=== PATIENT | male | born 1955 | race Caucasian/White ===

== ENCOUNTER 2020-04-16 20:00 | Outpatient (CLI) | payer OTHER, SELFPAY | END 2020-04-16 20:01 | disposition home or self-care (01) | LOC: SLEEP 04-17 09:51 | PROVIDERS: Family Provider Emergency Medicine Emergency Medical Services; Visit Provider Emergency Medicine Emergency Medical Services | DX: G47.09 Other insomnia (principal); G47.33 Obstructive sleep apnea (adult) (pediatric) | CPT/HCPCS: 95811 ==

== ENCOUNTER 2022-03-24 21:18 | Inpatient (IN) | payer OTHER, MEDICARE, SELFPAY ==
--- NOTE | 2022-03-24 21:27 | ECG_ITS ---
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 Measurements Intervals [place] Rate: 125 P: 63 [place]: 226 QRS: -42 QRSD: 110 T: 85 QT: 367 QTc: 530 Interpretive Statements Possible SINUS TACHYCARDIA WITH FIRST DEGREE AV BLOCK LEFT AXIS DEVIATION [QRS AXIS < -30] PATTERN CONSISTENT WITH PULMONARY DISEASE NONSPECIFIC ST & T-WAVE ABNORMALITY No previous ECG available for comparison Electronically Signed On 03-25-2022 0:07:53 CDT by Milind Ji M.D. [id number]
--- NOTE | 2022-03-24 21:27 | XRR_ITS ---
PROCEDURE INFORMATION: Exam: XR Chest Exam date and time: 03/24/2022 10:02 PM Age: 66 years old Clinical indication: Chest wall pain; Prior surgery; Surgery date: 6+ months; Surgery type: Heart; Additional info: Cp TECHNIQUE: Imaging protocol: XR of the chest. Views: 1 view. COMPARISON: No relevant prior studies available. FINDINGS: Lungs: No consolidative pulmonary infiltrates are noted. Pleural spaces: No pleural effusion. No pneumothorax. Heart/Mediastinum: No cardiomegaly. Bones/joints: Median sternotomy noted. Postop change right shoulder. Degenerative spine changes are noted. XR/XR chest 1V portable 12169 IMPRESSION: No acute abnormality demonstrated.
[2022-03-24 21:28] VITALS: BP 172/102; PULSE 92; RESP 22; TEMP 36.8; O2SAT 98; BMI 31.3
--- NOTE | 2022-03-24 22:01 | W.ED.CHESTPA ---
HPI - Chest Pain General: Chief Complaint: Chest Pain Stated Complaint: Chest Pain Time Seen by Provider: 03/24/22 21:55 Source: patient Mode of arrival: ambulatory Limitations: no limitations History of Present Illness: 66-year-old male states has been having chest pain since 9 AM. He states its been a sharp pain in the center of his chest and causing him some anxiety does have a history of PTSD along with anxiety attacks. He states it worsened got today was a 9 days been having intermittent tachycardia he states to go to lorazepam before coming up here his pain is improved to a 4 out of 10 but still having pain denies any nausea denies any fevers or cough. Has a history of an aortic valve replacement no history of coronary artery disease. Associated symptoms: Deny abdominal pain, dyspnea, fever(s), nausea or vomiting Review of Systems Const: Denies: fever(s), chills, body aches or change in appetite Eyes: Denies: blurry vision or eye discomfort ENMT: Denies: throat pain or dental pain Card: Reports: chest pain Resp: Denies: dyspnea GI: Denies: abdominal pain, nausea, vomiting or diarrhea : Denies: dysuria Musc: Denies: neck pain or back pain Skin/Breast: Denies: rash Neuro: Denies: headache(s) Psych: Reports: anxiety Bijan/Lymph: Denies: easy bruising All/Imm: Denies: urticaria Course Vital Signs: Vital signs: Vital Signs Temperature 98.2 F 03/24/22 21:28 Pulse Rate 56 L 03/24/22 23:07 Respiratory Rate 18 03/24/22 23:07 Blood Pressure 150/92 03/24/22 23:07 Pulse Oximetry 94 03/24/22 23:07 MDM - Chest Pain Medical Decision Making Patient presents here with chest pain he also had tachycardia first right now is having some bradycardia. Tachycardia could be due to his PTSD his initial troponin here is 25 due to his irregular rhythms and chest pain we will admit him for observation spoke to hospitalist who will admit. Lab Data : 03/24/22 22:00 03/24/22 22:00 Radiology Impressions Chest X-Ray 03/24/22 21:27 IMPRESSION: No acute abnormality demonstrated. Laboratory Results WBC 9.3 10^3/uL (4.0-10.0) 03/24/22 22:00 RBC 5.15 10^6/uL (4.1-5.3) 03/24/22 22:00 Hgb 15.9 g/dL (11.7-16.6) 03/24/22 22:00 Hct 46.3 % (42.0-52.0) 03/24/22 22:00 MCV 89.9 fl (80-94) 03/24/22 22:00 MCH 30.9 pg (28.0-34.0) 03/24/22 22:00 MCHC 34.3 g/dL (30.0-36.0) 03/24/22 22:00 RDW 12.1 % (12.1-15.1) 03/24/22:00 Plt Count 186 10^3/cmm (130-400) 03/24/22 22:00 MPV 9.0 fL (7.4-10.4) 03/24/22 22:00 Neut % (Auto) 57.0 % 03/24/22 22:00 Lymph % (Auto) 26.6 % 03/24/22 22:00 Mellette % (Auto) 10.7 % 03/24/22 22:00 Eos % (Auto) 4.1 % 03/24/22 22:00 Baso % (Auto) 1.2 % 03/24/22 22:00 Neut # (Auto) 5.33 10^3/uL (1.8-7.7) 03/24/22 22:00 Lymph # (Auto) 2.5 10^3/uL (0.8-4.8) 03/24/22 22:00 Mellette # (Auto) 1.0 10^3/uL (0.2-0.9) H 03/24/22 22:00 Eos # (Auto) 0.4 10^3/uL (0.0-0.8) 03/24/22 22:00 Baso # (Auto) 0.1 10^3/uL (0.0-0.1) 03/24/22 22:00 Nucleated RBC % (auto) 0 % 03/24/22 22:00 Nucleated RBCs # 0.0 /100WBC 03/24/22 22:00 D-Dimer 0.63 ug/mIFEU (0-0.59) H 03/24/22 22:00 Sodium 138 mmol/L (136-145) 03/24/22 22:00 Potassium 4.2 mmol/L (3.5-5.1) 03/24/22 22:00 Chloride 101 mmol/L (98-107) 03/24/22 22:00 Carbon Dioxide 27 mmol/L (22-29) 03/24/22 22:00 Anion Gap 14.2 (5-19) 03/24/22 22:00 BUN 18 mg/dL (8-23) 03/24/22 22:00 Creatinine 1.0 mg/dL (0.7-1.2) 03/24/22 22:00 GFR Calculation 74.5 mL/min (90-130) L 03/24/22 22:00 Glucose 93 mg/dL (65-115) 03/24/22 22:00 Calculated Osmolality 288 mOsm/kg (285-295) 03/24/22 22:00 Calcium 9.7 mg/dL (8.5-10.5) 03/24/22 22:00 Total Bilirubin 0.6 mg/dL (0.15-1.2) 03/24/22 22:00 AST 27 U/L (0-40) 03/24/22 22:00 ALT 42 U/L (0-41) H 03/24/22 22:00 Alkaline Phosphatase 72 IU/L (40-130) 03/24/22 22:00 Troponin T Baseline 25 ng/L (0-15) H 03/24/22 22:00 Total Protein 7.2 g/dL (6.6-8.7) 03/24/22 22:00 Albumin 4.2 g/dL (3.5-5.2) 03/24/22 22:00 Globulin 3.0 g/dL (1.3-4.6) 03/24/22 22:00 EKG Data EKG 1: I personally reviewed and interpreted this EKG as follows: EKG interpretation date: 03/24/22 EKG interpretation time: 21:28 Interpretation: sinus tach hr [address] or t wave abnormalities qrs 110 qtc 441 Discharge Plan Discharge Patient Disposition: Admitted As Inpatient Admit Provider: Elodia Iraheta Clinical Impression: Chest pain Condition: Stable Coding Level of Care Code ED Lunch Counter Manager for Chg Anel
[2022-03-24] MEDS: LORazepam 2 mg/mL INJ 1 mL 1 MG IVP (22:13)
[2022-03-24] MEDS: aspirin 81 mg Chew Tablet 324 MG PO (22:13)
[2022-03-24 22:14] LABS: Basophils # 0.1 10^3/uL (0.0-0.1); Basophils % 1.2 %; Eosinophils # 0.4 10^3/uL (0.0-0.8); Eosinophils % 4.1 %; Hematocrit 46.3 % (42.0-52.0); Hemoglobin 15.9 g/dL (11.7-16.6); Lymphocytes # 2.5 10^3/uL (0.8-4.8); Lymphocytes % 26.6 %; Mean Corpuscular HGB Conc 34.3 g/dL (30.0-36.0); Mean Corpuscular Hemoglobin 30.9 pg (28.0-34.0); Mean Corpuscular Volume 89.9 fl (80-94); Monocytes % 10.7 %; Neutrophils # 5.33 10^3/uL (1.8-7.7); Nucleated Red Blood Cells % 0 %; Platelet Count 186 10^3/cmm (130-400); Red Blood Count 5.15 10^6/uL (4.1-5.3); Red Cell Distribution Width 12.1 % (12.1-15.1); White Blood Count 9.3 10^3/uL (4.0-10.0)
[2022-03-24] MEDS: nitroglycerin 0.4 mg sublingual Tablet SUBLINGUAL (22:26)
[2022-03-24 22:35] LABS: D Dimer 0.63 ug/mIFEU (0-0.59)
[2022-03-24 22:37] LABS: Alanine Aminotransferase 42 U/L (0-41); Albumin Level 4.2 g/dL (3.5-5.2); Alkaline Phosphatase 72 IU/L (40-130); Anion Gap 14.2 (5-19); Aspartate Amino Transferase 27 U/L (0-40); Blood Urea Nitrogen 18 mg/dL (8-23); Calcium 9.7 mg/dL (8.5-10.5); Carbon Dioxide 27 mmol/L (22-29); Chloride 101 mmol/L (98-107); Glomerular Filtration Rate 74.5 mL/min (90-130); Glucose 93 mg/dL (65-115); Osmolality Calculated 288 mOsm/kg (285-295); Potassium 4.2 mmol/L (3.5-5.1); Sodium 138 mmol/L (136-145); Total Bilirubin 0.6 mg/dL (0.15-1.2); Total Protein 7.2 g/dL (6.6-8.7)
[2022-03-24 22:38] LABS: Troponin(5th) Baseline 25 ng/L (0-15)
[2022-03-24 23:07] VITALS: BP 150/92; PULSE 56; RESP 18; O2SAT 94
--- NOTE | 2022-03-24 23:17 | P.HP_ITS ---
Providers/Chief Complaint Admitting Physician: Elodia Iraheta DO Primary Care Provider: Johnny Mendoza DO Chief Complaint: Chest Pain History of Present Illness patient is a [age]-year-old male who presents with chief complaint of chest pain which are approximate 9 AM on March 24, 2022. He states it was of gradual onset. He states that the pain was in the substernal area without radiation. He describes as a heaviness. Since the time of onset's been constant. As worst rated 7 out of 10 and currently rates 2 out of 10. He took lorazepam at home which did not improve the pain. He denies peripheral edema. The onset of chest pain he admits to dyspnea, lightheaded, dizziness, diaphoresis, sense of rapid heartbeat. He denies palpitations or sensation of irregular heartbeat. He denies peripheral edema. The patient has no cardiac history aside from a history of a prosthetic aortic valve replacement. he presents for further evaluation Review of Systems General: Reports: 10 or more systems reviewed and unremarkable except in HPI and below Medications/Allergies Home Medications Medication Instructions Recorded Confirmed Last Taken Type azithromycin 250 mg tablet See Rx Instructions PO .COMPLEX #6 12/06/21 12/06/21 Unknown Rx tab duloxetine 20 mg capsule,delayed 20 mg PO DAILY cap 12/06/21 12/06/21 Unknown History release (Cymbalta) levothyroxine 300 mcg tablet 300 mcg PO DAILY 12/06/21 12/06/21 Unknown History (Synthroid) methylprednisolone 4 mg tablets in See Rx Instructions PO PER PKG DIR 12/06/21 12/06/21 Unknown Rx a dose pack (Medrol (Juan)) #21 ea metoprolol tartrate 25 mg tablet 25 mg PO DAILY 12/06/21 12/06/21 Unknown History Allergies Allergy/AdvReac Type Severity Reaction Status Date / Time Antihistamines - Allergy Unknown unknown Verified 12/06/21 12:33 Ethylenediamine buspirone Allergy Unknown Verified 03/24/22 22:07 clonazepam Allergy ADR-Insomni Verified 03/24/22 22:07 a divalproex sodium Allergy Unknown Verified 03/24/22 22:07 doxepin Allergy Unknown Verified 03/24/22 22:07 eszopiclone [From Lunesta] Allergy ADR-Halluci Verified 03/24/22 22:07 nating gabapentin Allergy ADR-Insomni Verified 03/24/22 22:07 a Iodinated Contrast Media Allergy ADR/ALGY-Pa Verified 03/24/22 22:07 lpitations lamotrigine Allergy Unknown Verified 03/24/22 22:07 levetiracetam [From Keppra] Allergy ADR-Insomni Verified 03/24/22 22:07 a mirtazapine Allergy Unknown Verified 03/24/22 22:07 pramipexole [From Mirapex] Allergy Unknown Verified 03/24/22 22:07 pregabalin [From Lyrica] Allergy Unknown Verified 03/24/22 22:07 ropinirole [From Requip] Allergy Unknown Verified 03/24/22 22:07 tramadol Allergy ADR-Insomni Verified 03/24/22 22:07 a trazodone Allergy Unknown Verified 03/24/22 22:07 Vitals/I&O/Wt Last Vital Signs Temp 98.2 F 03/24/22 21:28 Pulse 56 L 03/24/22 23:07 Resp 18 03/24/22 23:07 BP 150/92 03/24/22 23:07 Pulse Ox 94 03/24/22 23:07 Weight last 48 hrs Weight 90.718 kg Physical Exam Narrative: General: -Alert -No acute distress -No dyspnea -No tachypnea Head: -Atraumatic -Normocephalic Eyes: -Pupils equally round and reactive to light and accommodation -Extraocular muscles intact Neurological: -Cranial nerves II-XII intact Neck: -No jugular venous distention -No thyromegaly -No cervical lymphadenopathy Heart: -Regular rate -Regular rhythm -No murmurs -No gallops -No rubs Lungs: -No wheeze -No rhonchi -No rales ? Abdomen: -Normal bowel sounds in all four quadrants -No rebound -No guarding -No tenderness Extremities: -2/4 pulse in all four extremities -No clubbing -No cyanosis -No edema -No calf tenderness present bilaterally -Negative Pj?s sign bilaterally Musculoskeletal: -5/5 bilateral upper extremity strength -5/5 bilateral lower extremity strength -Sensorium of bilateral upper extremities are equal and intact -Sensorium of bilateral lower extremities are equal and intact ? Additional Details / Additional Findings / Exceptions / Miscellaneous: Data : 03/24/22 22:00 03/24/22 22:00 A&P Assessment and plan (1) Chest pain: Status: Acute Plan chest pain, rule out ACS. Will monitor patient on telemetry and checks her cardiac and's. Check TSH, free T4, magnesium level. In the morning we will recheck EKG and check fasting lipid panel. Echocardiogram pending. Lexiscan pending. Aspirin 81 Mill cans daily +1 inch every 6 hours plus Lipitor 40 Mill grams by mouth daily at bedtime. No beta-emir due to bradycardia History of seizure. Seizure precautions History of bioprosthetic aortic valve replacement. Echocardiogram pending Marijuana use. The patient becomes regarding marijuana cessation Obstructive sleep apnea. CPAP/BiPAP: Okay to use home device and/or pressure when sleeping PTSD Anxiety Depression Hypothyroidism. TSH, free T4 pending Hypertension. Nitropaste 1 inch every 6 hours Obesity. The patient becomes regarding lifestyle medication DVT Proflex is. Lovenox 40 Mill grams subcu tensely daily Attestations Medical Necessity Statement*: the patient's anticipate length of stay is less than 2 per night for chest pain to rule out ACS Coding Level of Care Code Acute Director Executive Communications for Cathi Tam Diagnoses Chest pain R07.9
[2022-03-24] MEDS: enoxaparin 100 mg/mL Syringe 90 MG SUBCUT (23:20)
[2022-03-24 23:23] VITALS: PULSE 58; RESP 16; O2SAT 95
--- NOTE | 2022-03-24 23:27 | ECG_ITS ---
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 Measurements Intervals [place] Rate: 59 P: 69 [place]: 168 QRS: -52 QRSD: 110 T: 68 QT: 447 QTc: 446 Interpretive Statements SINUS BRADYCARDIA WITH SINUS ARRHYTHMIA LEFT ANTERIOR FASCICULAR BLOCK [QRS AXIS <= -45, QR IN I, RS IN II] Compared to ECG 03/24/2022 21:26:39 Left anterior fascicular block now present Sinus tachycardia no longer present First degree AV block no longer present Left-axis deviation no longer present T-wave abnormality no longer present Electronically Signed On 03-25-2022 20:44:52 CDT by Cristofer Whiting M.D. [id number]
[2022-03-24 23:32] VITALS: BP 123/86; PULSE 47; PULSE 49; RESP 15; O2SAT 96
[2022-03-24 23:36] LABS: Thyroid Stimulating Hormone 0.01 uIU/mL (0.27-4.20)
[2022-03-24 23:43] VITALS: RESP 24
[2022-03-25] VITALS (16 sets, daily range): BP systolic 103–127; BP diastolic 57–89; PULSE 47–80; RESP 14–25; TEMP 36.9; O2SAT 93–97
[2022-03-25] MEDS: atorvastatin 40 mg Tablet PO ×2 (01:09→21:21)
[2022-03-25] MEDS: nitroglycerin 1 gm/inch oint Pkt 1 INCH TOPICAL ×2 (01:09→06:37)
[2022-03-25] MEDS: sodium chloride 0.9% 1,000 ML 75 ML IV ×2 (01:10→14:39)
[2022-03-25] MEDS: temazepam 15 mg Capsule PO ×2 (01:40→21:20)
[2022-03-25 01:54] LABS: Troponin 5 2HR 68.11 ng/L (0-15)
[2022-03-25 01:57] LABS: Troponin 5 2HR Delta 43.11 ABS# (0-10)
[2022-03-25 02:03] LABS: Free T4 Free Thyroxine 2.55 ng/dL (0.82-1.77); Thyroid Stimulating Hormone 0.01 uIU/mL (0.27-4.20)
--- NOTE | 2022-03-25 02:51 | PC.NURSE ---
Pt lying in bed resting with eyes closed. Resp even and non-labored no distress or sob noted. Pt had no c/o pain or discomfort at the present time. No needs voiced. Call light in reach.
--- NOTE | 2022-03-25 03:27 | ECG_ITS ---
[facility] Test Date: 2022-03-25 Pat Name: Zachary Gaston Department: Room: 106 Gender: Male Blood And Plasma Laboratory Assistant: : 1955 Requested By: Morales Mathis Order Number: [id number] Cortney MD: Cristofer Whiting M.D. Measurements Intervals [place] Rate: 53 P: 61 [place]: 163 QRS: -44 QRSD: 109 T: 55 QT: 467 QTc: 442 Interpretive Statements SINUS BRADYCARDIA POSSIBLE LEFT ATRIAL ENLARGEMENT [-0.1mV P-WAVE IN V1/V2] LEFT AXIS DEVIATION [QRS AXIS < -30] PATTERN CONSISTENT WITH PULMONARY DISEASE INCOMPLETE RIGHT BUNDLE BRANCH BLOCK [90+ ms QRS DURATION, TERMINAL R IN V1/V2, 40+ ms S IN I/aVL/V4/V5/V6] POSSIBLE SEPTAL MYOCARDIAL INFARCTION , PROBABLY OLD [30 ms Q WAVE IN V1/V2] Compared to ECG 03/24/2022 23:21:04 Left-axis deviation now present Incomplete right bundle-branch block now present Myocardial infarct finding now present Sinus arrhythmia no longer present Left anterior fascicular block no longer present Electronically Signed On 03-25-2022 20:44:30 CDT by Cristofer Whiting M.D. [id number]
[2022-03-25 05:22] LABS: Chol HDL Ratio 4.42 mg/dL (1.0-5.00); Cholesterol 159 mg/dL (0-200); HDL Cholesterol 36 mg/dL (60-100); LDL Cholesterol Calculated 100 mg/dL (50-129); LDL HDL Ratio 2.78 RATIO (0.00-3.22); Triglycerides 115 mg/dL (0-150)
[2022-03-25 05:36] LABS: Troponin 5 6HR 152.8 ng/L (0-15)
[2022-03-25 05:37] LABS: Troponin 5 6HR Delta 127.8 ng/L (0-12)
--- NOTE | 2022-03-25 06:48 | ECG_ITS ---
[facility] Test Date: 2022-03-25 Pat Name: Zachary Gaston Department: Room: 106 Gender: Male Manager Market: : 1955 Requested By: Elodia Iraheta Order Number: [id number] Cortney MD: Milind Ji M.D. Interpretive Statements NAME OF STUDY: LEXISCAN SESTAMIBI STRESS TEST INDICATION: Chest Pain PROCEDURE: At the baseline, the EKG revealed sinus bradycardia with PVCs.. The baseline blood pressure was 115/75 mm Hg with a heart rate of 59 beats/min. Lexiscan was infused over a period of 20 seconds. A total of 0.4 milligrams of Lexiscan was infused. The stress phase was continued for a total of 5 minutes. Heart rate at the end of the stress phase was 71 with a blood pressure 122/72. The EKG at the peak infusion revealed no significant changes. Sestamibi was injected 20 seconds after the Lexiscan infusion. Blood pressure at the end of the recovery phase was 114/71 with a heart rate of 56 per minute. CONCLUSION: 1. No significant EKG changes with the LexiScan infusion 2. No LexiScan induced chest pain or cardiac arrhythmia 3. Normal blood pressure and heart rate response 4. Sestamibi/sestamibi perfusion scan pending; see separate report. Electronically Signed On 04-29-2022 6:20:56 CDT by Milind Ji M.D. [id number]
--- NOTE | 2022-03-25 07:21 | PC.NURSE ---
off for a cardiac stress test ushered by [facility] staff via wheelchair.
[2022-03-25] MEDS: regadenoson 0.4 Mg/5 ml Syringe IVP (07:53)
[2022-03-25] MEDS: ondansetron 2 mg/ML SDV 2 mL 4 MG IVP (08:02)
[2022-03-25] MEDS: aminophylline 25 mg/mL SDV 10 mL IVP ×5 (08:05→08:10)
[2022-03-25] MEDS: enoxaparin 100 mg/mL Syringe 90 MG SUBCUT ×2 (09:44→21:20)
[2022-03-25] MEDS: aspirin 81 mg Chew Tablet PO (09:44)
--- NOTE | 2022-03-25 10:03 | PC.CHAP ---
Pastoral Care Encounter/Spiritual Assessment Type of Contact [] Declined mma fighter visit [] Patient/Family/Request visit [] Outpatient visit [] Follow-up visit [] Physician referral [] Code/Alert [x] Routine visit [] Staff referral [] Actively dying [] Patient sleeping [x] Family support [] [x] Out of room [] Palliative care [] [] Receiving care in room [] Pre-surgical visit [] Trauma [] Long length of stay [] ICU visit [x] Other: out for testing but prayed with Relational/Emotional Strength [] Patient feels connected with others/family/visitors/staff [] Distress [] Loneliness/isolation [] Abandonment Spirituality of Patient [] Person of Nichole [] Attends Taoism of their Nichole [] Believes in Prayer [] Reads Bible or Sikhism materials [] There are Spiritual issues to be addressed Utility Lineman Interventions [x] Prayer [] Active listening [] Non-anxious presence [] Spiritual/emotional support [] Crisis/trauma care [] Spiritual counseling [] Bereavement support [] Provided bereavement packet [] Provided Bible/devotional materials [] Provided toy/stuffed animal, coloring book to patient or family member [] Provided Communion [] Anointing/[place] [] Salvation [x] Completed spiritual assessment [] Other: Impact on Illness or Injury [] Angry [] Fearful [] Anxious [] Often cries [] Exhaustion [] Unable to work [] Unable to attend yarsanism [] Unable to walk/stand [] Unable to read [] Unable to drive [] Unable to eat/drink [] Unable to sleep [] Unable to be with family [] Patient intubated [] Other: Summary Time spent with patient
--- NOTE | 2022-03-25 11:54 | P.PN_ITS ---
Subjective Subjective: Chest pain/pressure/ache had resolved, but reports has recurrence of chest discomfort during stress test up to 02/20. His noticed some irregular heartbeat. On the monitor, intermittent PVCs, so metimes wide-complex runs/BBB. Reports having some dry cough. No pain on inspiration. No pain on laying supine. No orthopnea, no lower extremity edema. He has a history of hypertension, ANGELINA, wears CPAP, replacement of aortic valve with bioprosthetic valve. Denies history of NC in himself. Remote smoker, quit 45 years ago. Brother of NC at age 65. Not a heavy drinker, max 2 beers a week, no drug use. Vitals/I&O/Wt Last Vital Signs Temp 98.2 F 03/24/22 21:28 Pulse 62 03/25/22 11:00 Resp 17 03/25/22 11:00 BP 105/57 03/25/22 10:00 Pulse Ox 94 03/25/22 11:00 Weight last 48 hrs Weight 90.718 kg Physical Exam Narrative: Taking a nap, CPAP in place, removes it to speak. accompanies him in the room. Const: COMMON NORMALS: alert GENERAL APPEARANCE: cooperative ORIENTATION/CONSCIOUSNESS: Yes awake HENMT: COMMON NORMALS: normocephalic, EAC's normal, Normal external nose present and moist oral mucous membranes HEAD & SCALP: normocephalic NOSE: Normal external nose present EXTERNAL AUDITORY CANAL: EAC's normal Neck/C-Spine: COMMON NORMALS: no meningeal signs Chest: CHEST: Yes Symmetrical chest wall rise OTHER: No chest wall tenderness on palpation Resp: COMMON NORMALS: clear to auscultation bilaterally AUSCULTATION: clear to auscultation bilaterally Cardio: COMMON NORMALS: regular rate, regular rhythm and No murmurs present (Cardio) RATE: regular rate RHYTHM: regular rhythm GI: COMMON NORMALS: Normal to inspection, nondistended, normoactive bowel sounds present, Soft to palpation and non-tender PALPATION: Yes Soft to palpation Extremity: COMMON NORMALS: no pedal edema Neuro: COMMON NORMALS: moves all extremities SENSORIUM/ORIENTATION: Yes alert MENINGEAL SIGNS: Yes no meningeal signs Psych: COMMON NORMALS: mental status grossly normal Skin: COMMON NORMALS: no wounds RASHES: no rashes Data : 03/24/22 22:00 03/24/22 22:00 A&P Assessment and plan (1) NSTEMI (non-ST elevated myocardial infarction): Yesterday and this morning chest pain variable quality, sharp pain pressure and dull ache, then resolved. Currently chest pain-free. Some risk of recurrence up to 02/20. Stress test. Troponin with moderate elevation up to 127.8 with positive delta. Stress test with perfusion abnormality with small to moderate area of reversible defect in the inferolateral region suggestive of ischemia in distribution of LCx. Normal EF. Mild diffuse hypokinesia of the septum. On telemetry frequent PVCs, occasional wide-complex runs, possibly intermittent bundle branch block. Metoprolol held for now. TTE pending. Continue aspirin, anticoagulation, statin. Requested evaluation by cardiology. Noted arrhythmias w bradycardia, PVC, intermittent BBB, intermittent non- sustained VT runs. Possible contusion from ischemia versus thyroid dysfunction. Remote smoking history, quit 45 years ago. Brother of NC at age 65. Status: Acute (2) Chest pain: NSTEMI as above. Abnormal D-dimer, but normal corrected for age. Status: Acute (3) Arrhythmia: Noted arrhythmias w PVC, intermittent BBB, intermittent non-sustained VT runs. Possible contusion from ischemia versus thyroid dysfunction. Magnesium okay. Recheck BMP for potassium. Levothyroxine dose adjusted. Status: Acute (4) Bradycardia: Hold metoprolol Status: Acute Plan History of seizure. Seizure precautions History of bioprosthetic aortic valve replacement. Echocardiogram pending Marijuana use. The patient becomes regarding marijuana cessation Obstructive sleep apnea. CPAP/BiPAP: Okay to use home device and/or pressure when sleeping PTSD Anxiety Depression Hypothyroidism. TSH 0.01, free T4 2.55. Discussed with them decreasing levothyroxine dose, decreased to 275 mcg. Reassess outpatient. Hypertension. Now blood pressure soft. Stop Nitropaste. Obesity. The patient becomes regarding lifestyle medication Attestations Medical Necessity Statement*: Continue hospitalization for cyst management of NSTEMI Coding Level of Care Code Acute Boat Assembler for Christopherg Fwd Exam Comprehensive Diagnoses Chest pain R07.9 NSTEMI (non-ST elevated myocardial infarction) I21.4 Arrhythmia I49.9 Bradycardia R00.1
[2022-03-25 11:59] LABS: T3 Free 4.1 PG/ML (2.0-4.4)
[2022-03-25] MEDS: duloxetine 20 mg Capsule PO (12:59)
[2022-03-25] MEDS: escitalopram 10 mg Tablet 20 MG PO (12:59)
--- NOTE | 2022-03-25 13:43 | P.CONIM_ITS ---
Providers/Reason For Consult Consulting Physician/Specialty*: Dr. Alexander, Cardiology Reason for Consult*: NSTEMI, abnormal stress test Attending Physician: Elodia Iraheta DO Primary Care Provider: Johnny Mendoza DO History of Present Illness History of Present Illness Zachary Gaston is a 66 year old male with PMHx of ANGELINA, h/o marijuana use, s/p bioprosthetic AV replacement [address] [facility] in [place], HTN, anxiety/depression, h/o seizures and obesity. He presented with c/o chest pain on and off during the day with c/o tiredness. At around 7:30 pm while playing cards he developed chest heaviness 7-8/10 in intensity with nausea, dizziness and sweating and SOB. He came to ER around 9:30 for further assessment. EKG showed sinus rhythm, LAFB. Non specific ST-T wave changes. Troponin T increased from 25 to 68 to 153. He underwent stress test that showed ischemia in LCx artery territory. He had 3-4/10 chest pain during the study. He is pain free presently. Review of Systems General: Reports: 10 or more systems reviewed and unremarkable except in HPI and below Medications/Allergies Home Medications Medication Instructions Recorded Confirmed Last Taken Type duloxetine 20 mg capsule,delayed 20 mg PO DAILY cap 12/06/21 03/25/22 03/24/22 06:00 History release (Cymbalta) levothyroxine 300 mcg tablet 300 mcg PO DAILY 12/06/21 03/25/22 03/24/22 06:00 History (Synthroid) metoprolol tartrate 25 mg tablet 50 mg PO BID 12/06/21 03/25/22 03/24/22 20:00 History Lexapro 20 mg PO DAILY 03/25/22 03/25/22 03/24/22 06:00 History dicyclomine 20 mg PO TID 03/25/22 03/25/22 03/24/22 06:00 History lorazepam 1 mg PO TID PRN 03/25/22 03/25/22 03/24/22 20:00 History temazepam 15 mg PO BEDTIME 03/25/22 03/25/22 03/23/22 23:00 History Allergies Allergy/AdvReac Type Severity Reaction Status Date / Time Antihistamines - Allergy Unknown unknown Verified 12/06/21 12:33 Ethylenediamine buspirone Allergy Unknown Verified 03/24/22 22:07 clonazepam Allergy ADR-Insomni Verified 03/24/22 22:07 a divalproex sodium Allergy Unknown Verified 03/24/22 22:07 doxepin Allergy Unknown Verified 03/24/22 22:07 eszopiclone [From Lunesta] Allergy ADR-Halluci Verified 03/24/22 22:07 nating gabapentin Allergy ADR-Insomni Verified 03/24/22 22:07 a Iodinated Contrast Media Allergy ADR/ALGY-Pa Verified 03/24/22 22:07 lpitations lamotrigine Allergy Unknown Verified 03/24/22 22:07 levetiracetam [From Keppra] Allergy ADR-Insomni Verified 03/24/22 22:07 a mirtazapine Allergy Unknown Verified 03/24/22 22:07 pramipexole [From Mirapex] Allergy Unknown Verified 03/24/22 22:07 pregabalin [From Lyrica] Allergy Unknown Verified 03/24/22 22:07 ropinirole [From Requip] Allergy Unknown Verified 03/24/22 22:07 tramadol Allergy ADR-Insomni Verified 03/24/22 22:07 a trazodone Allergy Unknown Verified 03/24/22 22:07 Current Medications Generic Name Dose Route Start Last Admin Trade Name Freq PRN Reason Stop Dose Admin Aminophylline 25 mg 03/25/22 06:52 03/25/22 08:10 Aminophylline 25 Mg/Ml Sdv 10 Ml IVP 03/26/22 06:51 25 mg Q2M PRN Administration see dose instructions Aspirin 81 mg 03/25/22 09:00 03/25/22 09:44 Aspirin 81 Mg Chew Tablet PO 81 mg DAILY GABRIELLA Administration Atorvastatin Calcium 40 mg 03/24/22 23:32 03/25/22 01:09 Atorvastatin 40 Mg Tablet PO 40 mg BEDTIME GABRIELLA Administration Duloxetine HCl 20 mg 03/25/22 11:50 03/25/22 12:59 Duloxetine 20 Mg Capsule PO 20 mg DAILY GABRIELLA Administration Enoxaparin Sodium 90 mg 03/25/22 09:00 03/25/22 09:44 Enoxaparin 100 Mg/Ml Syringe 1 mg/kg (90 mg) 90 mg SUBCUT Administration Q12H [facility] Escitalopram Oxalate 20 mg 03/25/22 11:50 03/25/22 12:59 Escitalopram 10 Mg Tablet PO 20 mg DAILY GABRIELLA Administration Sodium Chloride 1,000 mls @ 75 mls/hr 03/24/22 23:32 03/25/22 01:10 Sodium Chloride 0.9% IV 75 mls/hr .[id number] GABRIELLA Administration Ondansetron HCl 4 mg 03/25/22 06:52 03/25/22 08:02 Ondansetron 2 Mg/Ml Sdv 2 Ml IVP 4 mg Q2M PRN Administration NAUSEA Temazepam 15 mg 03/25/22 01:30 03/25/22 01:40 Temazepam 15 Mg Capsule PO 15 mg BEDTIME GABRIELLA Administration PFSH Acute PFSH: Medical History Anxiety Hypothyroidism ANGELINA (obstructive sleep apnea) PTSD (post-traumatic stress disorder) Surgical History History of aortic valve replacement with bioprosthetic valve Vitals/I&O/Wt Last Vital Signs Temp 98.4 F 03/25/22 12:00 Pulse 64 03/25/22 12:00 Resp 16 03/25/22 12:00 BP 103/57 03/25/22 12:00 Pulse Ox 95 03/25/22 12:00 03/24/22 03/25/22 03/25/22 22:59 06:59 14:59 Intake Total 118 / 118 Balance 118 / 118 Weight last 48 hrs Weight 200 lb Physical Exam Narrative: Gen: NAD Neck: No JVD, No carotid bruit HEENT: No pallor or icterus RS: CTAB/L CVS: S1, S2 normal. NO murmur, rub or gallop VICE CHAIR: AAOx 3, No FND Ext: No edema, cyanosis or clubbing. Psych: normal mood and affect Skin: No rash/ wound Data : 03/24/22 22:00 03/24/22 22:00 A&P Assessment and plan (1) NSTEMI (non-ST elevated myocardial infarction): Risks and benefits were discussed with the patients. Possible complications including risk of heart attack stroke and , coronary perforation, arrhythmia, cardiac tamponade in urgent CABG were discussed with the patient as well. Plan is to proceed for the procedure at the earliest. -continue ASA, statin. start on brilinta -continue lovenox Status: Acute (2) History of aortic valve replacement with bioprosthetic valve: Status: Acute (3) ANGELINA (obstructive sleep apnea): Status: Acute Plan ANGELINA H/O seizure Anxiety Hypothyroidism PTSD Thank you for allowing me to participate in patient's care. Please feel free to call with questions or concerns. Coding Level of Care Code Acute Household Appliances Salesperson for Cathi Tam Diagnoses NSTEMI (non-ST elevated myocardial infarction) I21.4 History of aortic valve replacement with bioprosthetic valve Z95.3 ANGELINA (obstructive sleep apnea) G47.33
[2022-03-25] MEDS: acetaminophen 325 mg Tablet 650 MG PO (14:36)
[2022-03-25] MEDS: ticagrelor 90 mg Tablet 180 MG PO (16:15)
[2022-03-25] MEDS: LORazepam 1 mg Tablet PO (16:15)
--- NOTE | 2022-03-25 20:09 | PC.NURSE ---
Shift Note Frequent safety and comfort rounds continue. Orders and/or nursing care completed as indicated. Patient monitored for response to intervention and treatment(s). Education provided includes [facility] and pt and stated pt cannot take antihistamine such as Benadryl due to side effects of him getting agitated and feels like bugs crawling on him. stated pt had a cardiac stress test in [facility] 2 yrs ago and they told her pt had a reaction to contrast dye? and symptoms were palpitations,nausea,cp and severe diaphoresis. I clarified it to that stress test don't use iodinated dye. stated what they told her was pt had a contrast dye reaction when he had stress test. I asked pt if he has any allergic reaction to shellfish derived foods and pt stated, No , he said he has had seafoods and still eating. Notified Dr Alexander regarding pt's refusal to taking benadryl and concern about contrast dye during aniogram. Patient and/or chemical sales representative verbalizes understanding. Will continue to monitor.
[2022-03-25] MEDS: dicyclomine 20 mg Tablet PO (21:20)
--- NOTE | 2022-03-25 23:32 | USCV_ITS ---
Zachary aGston Age: 66 Gender: M : 1955 Exam Date: 03/25/2022 05:38 Ordering Phys: Elodia Iraheta DO Technologist: RICK Exam Location: [facility] Indication: CHEST PAIN BP: / HR: 84 Rhythm: Sinus Technical Quality: Adequate MEASUREMENTS (Male / Female) Normal Values 2D ECHO LV Diastolic Diameter PLAX 3.5 cm 4.2 - 5.9 / 3.9 - 5.3 cm LV Systolic Diameter PLAX 2.3 cm IVS Diastolic Thickness 1.5 cm 0.6 - 1.0 / 0.6 - 0.9 cm IVS Systolic Thickness 1.9 cm LVPW Diastolic Thickness 1.2 cm 0.6 - 1.0 / 0.6 - 0.9 cm LVPW Systolic Thickness 2.0 cm LVOT Diameter 2.0 cm LV Ejection Fraction 2D Teich 64.0 % LV Ejection Fraction MOD 2C 58.0 % LV Ejection Fraction 2C AL 60.7 % LA Diameter 4.4 cm LA Width 3.1 cm LA Height 4.7 cm RA Width 3.4 cm RA Height 4.5 cm Aorta at Sinotubular Diameter 2.1 cm M-MODE Aortic Annulus Diameter 2.6 cm MV E Point Septal Separation 0.4 cm DOPPLER AV Peak Velocity 170.3 cm/s LVOT Peak Velocity 85.0 cm/s AV Area Cont Eq vti 1.6 cm squared AV Area Cont Eq pk 1.5 cm squared MV Peak Velocity 85.0 cm/s MV Area PHT 3.1 cm squared Mitral E to A Ratio 0.9 MV E' Velocity 40.0 cm/s Mitral E to MV E' Ratio 8.0 Mitral E to LV E' Lateral Ratio 6.2 Mitral E to LV E' Septal Ratio 11.4 TR Peak Velocity 219.0 cm/s TR Peak Gradient 19.2 mmHg TV Peak E Velocity 40.0 cm/s Right Atrial Pressure 8.0 mmHg Pulmonary Artery Systolic Pressu 27.2 mmHg PV Peak Velocity 113.0 cm/s RV Acceleration Time 0.0 s RV Ejection Time 0.3 s RV AcT/ET 0.1 FINDINGS Left Ventricle Normal left ventricular cavity size. Mildly decreased left ventricular systolic function. Left ventricular ejection fraction is estimated at 50-55 %. There is hypokinesis of basal to mid inferolateral and anterolateral wong. Normal diastolic function. Right Ventricle Normal right ventricular size and systolic function. Right ventricular systolic pressure 27.2 mmHg. Right Atrium Normal right atrial size. Left Atrium Normal left atrial size. Mitral Valve Structurally normal mitral valve. No mitral valve stenosis. No mitral valve regurgitation. Aortic Valve Bioprosthetic aortic valve well-seated and normally functioning. Aortic valve peak velocity of 1.7 m/s, peak gradient 11 mmHg and mean gradient 6 mmHg. No aortic valve regurgitation. Tricuspid Valve Structurally normal tricuspid valve. No tricuspid valve stenosis. Pulmonic Valve Pulmonic valve not well visualized. No pulmonary valve regurgitation. Pericardium No pericardial effusion. Aorta Normal-sized aortic root. CONCLUSIONS 1. Normal left ventricular cavity size. Mildly decreased left ventricular systolic function. Left ventricular ejection fraction is estimated at 50-55 %. There is hypokinesis of basal to mid inferolateral and anterolateral wong. Normal diastolic function. 2. Normal right ventricular size and systolic function. 3. Normal pulmonary artery pressure estimated at 20 mm Hg. 4. Bioprosthetic aortic valve well-seated and normally functioning. Aortic valve peak velocity of 1.7 m/s, peak gradient 11 mmHg and mean gradient 6 mmHg. 5. When compared to prior study dated 08/27/2019, left ventricle systolic function seems to have decreased. Marissa Alexander MD (Electronically Signed) Final Date: 26 Mar 2022 11:26 S
--- NOTE | 2022-03-25 23:32 | NMCV_ITS ---
NM smita perf SPECT r/s* [id number] Zachary Gaston Age: 66 Gender: M : 1955 Exam Date: 03/25/2022 07:04 Ordering Phys: Elodia Iraheta DO Technologist: BELINDA Vega Exam Location: [facility] Indications: CHEST PAIN STRESS TEST Please see separate stress test report in [facility] for full findings IMAGE PROTOCOL Rest/Stress 1 Lexiscan Day Radiopharmaceutical Dose (mCi) Administration Site Administered by Rest: Tc-99m 10.8 IV BELINDA Ding Sestamibi Stress:Tc-99m 32.7 IV BELINDA Vega Sestamirenae Rest: 25-Mar-2022 0 Discovery 630 Stress: 25-Mar-2022 30 Discovery 630 0.4mg Lexiscan. Images obtained in supine and prone position. SPECT RESULTS Technical Quality: Excellent Raw Data Analysis: Normal Image Corrections: No attenuation or motion correction applied Summed Stress Score: 9 Summed Rest Score: 6 Summed Difference Score: 3 PERFUSION FINDINGS Small to moderate area of moderate to severely decreased tracer uptake was noted in the basal and mid inferolateral, apical lateral regions with significant reversibility in the basal and mid regions. Slightly decreased tracer uptake also was noted in the mid and apical inferior region with no significant reversibility. FUNCTIONAL RESULTS (calculated via Gated SPECT) Stress Image LV EF (%): 67 Stress EDV (mL):88 TID: 1 Stress ESV (mL):29 FUNCTIONAL FINDINGS: Segmental wall motion analysis revealing mild diffuse hypokinesia of the septum IMPRESSIONS 1. Myocardial perfusion imaging revealing small to moderate area of reversible defect in the inferolateral region, suggestive of ischemia in the distribution of the left circumflex artery. 2. Normal LV ejection fraction of 67%. 3. LV wall motion analysis revealing mild diffuse hypokinesia of the septum. 4. Normal LV volume Compared to the previous study from 01/01/2019, this area of ischemia appears to be new Dr Milind Ji MD FAC (Electronically Signed) Final Date: 25 Mar 2022 10:16 S
[2022-03-26] VITALS (35 sets, daily range): BP systolic 108–159; BP diastolic 67–97; PULSE 56–80; RESP 7–28; TEMP 36.6; O2SAT 94–98
[2022-03-26] MEDS: sodium chloride 0.9% 1,000 ML 75 ML IV ×3 (01:55→22:07)
[2022-03-26 05:09] LABS: Basophils # 0.1 10^3/uL (0.0-0.1); Eosinophils # 0.2 10^3/uL (0.0-0.8); Hematocrit 41.3 % (42.0-52.0); Lymphocytes # 2.5 10^3/uL (0.8-4.8); Lymphocytes % 33.7 %; Mean Corpuscular HGB Conc 33.9 g/dL (30.0-36.0); Mean Corpuscular Hemoglobin 30.6 pg (28.0-34.0); Mean Corpuscular Volume 90.2 fl (80-94); Mean Platelet Volume 9.2 fL (7.4-10.4); Monocytes # 0.8 10^3/uL (0.2-0.9); Monocytes % 10.8 %; Neutrophils # 3.75 10^3/uL (1.8-7.7); Neutrophils % 51.1 %; Nucleated Red Blood Cells % 0 %; Platelet Count 158 10^3/cmm (130-400); Red Blood Count 4.58 10^6/uL (4.1-5.3); White Blood Count 7.3 10^3/uL (4.0-10.0)
[2022-03-26 05:29] LABS: Alanine Aminotransferase 37 U/L (0-41); Albumin Level 3.6 g/dL (3.5-5.2); Alkaline Phosphatase 65 IU/L (40-130); Anion Gap 14.4 (5-19); Aspartate Amino Transferase 56 U/L (0-40); Blood Urea Nitrogen 14 mg/dL (8-23); Calcium 9.3 mg/dL (8.5-10.5); Carbon Dioxide 25 mmol/L (22-29); Chloride 104 mmol/L (98-107); Globulin 2.6 g/dL (1.3-4.6); Glomerular Filtration Rate 74.5 mL/min (90-130); Glucose 100 mg/dL (65-115); Osmolality Calculated 289 mOsm/kg (285-295); Potassium 4.4 mmol/L (3.5-5.1); Sodium 139 mmol/L (136-145); Total Bilirubin 0.7 mg/dL (0.15-1.2); Total Protein 6.2 g/dL (6.6-8.7)
--- NOTE | 2022-03-26 06:39 | XACV_ITS ---
Exam Room: [facility] Ht: 170 cm Wt: 91 kg BSA: 2.10 m2 Gender: Male : 1955 Any Known Allergies: Other Exam Priority: Routine Procedure(s): Procedure Description: Diagnostic procedure Procedure Description: PCI procedure Procedure Description: Left Heart Catheterization Procedure Description: Drug Eluting Coronary Stent Procedure Description: PTCA Procedure Description: Miscellaneous Procedure Description: ACT Procedure Description: Coronary Angiography Diagnostic Cath Status: Urgent Diagnostic Findings * 56-year-old man with past medical history of obstructive sleep apnea, s/p bioprosthetic aortic valve replacement 2 years back, hypertension, anxiety/depression, seizure, obesity and history of marijuana abuse. He presented to the hospital with complaints of chest discomfort and fifth generation troponin T increased from 25 to 53 at 6 hours. Stress test with ischemia in circumflex artery territory. * Angiography shows a right coronary dominant system. * Normal caliber left main artery. * Small to medium sized circumflex artery. Mid to distal circumflex artery with long 80% stenosis with FANTA-3 flow. Proximal segment of first obtuse marginal with 99% stenosis FANTA-2 flow. * Small to medium sized left anterior descending artery with one major diagonal branch and is free of disease. * Large caliber right coronary artery with minor luminal irregularities. * Case was discussed and images were reviewed with Dr. Whiting. PCI Status: Urgent PCI Indication: NSTE - ACS Interventional Findings * Mid to distal Circumflex: 70% stenosis treated with a AB TREK 2.25X12 RX BALLOON, and MDT R KRISTIN 2.25X15 TRAVIS. * Procedure detail: We engaged left main artery with JL 4 guide catheter. 0.014 run-through guidewire was used to cross mid to distal circumflex artery stenosis. IV heparin was administered to maintain ACT above 250 S. We predilated circumflex artery stenosis with 2.25 x 12 mm semicompliant balloon. This was followed by placement of 2.25 x 15 mm resolute [place] drug-eluting eluding stent. We then wired to the OM branch which had ostial severe stenosis and dilated with 2.25 x 15 mm semicompliant balloon. This improved the flow significantly. Given size of the vessel was not very large and the ostial location of the stenosis, we decided to not stent it at this time and medically treated post balloon dilation which had minimal residual stenosis. At this time guidewire was removed and final angiogram was performed that showed excellent stent expansion, no residual stenosis and FANTA-3 flow.. * First Obtuse Marginal Branch Segment: 70% stenosis treated with a AB TREK 2.25X15 RX BALLOON. Conclusions 1. Angiography shows a right coronary dominant system. 2. Mid to distal circumflex artery with long 80% stenosis. Proximal segment of first obtuse marginal with 99% stenosis. 3. Mid Circumflex was treated with a Balloon, and Drug Eluting Stent. 4. First Obtuse Marginal Branch Segment was treated with a Balloon. Recommendations * Brilinta for at least one year and 81mg Aspirin indefinitely. * High intensity statin therapy. * Beta-emir and SUMA inhibitor therapy. * Outpatient cardiology follow-up in 4 weeks. Interventional RX Recommendation: PCI w/o planned CABG Diagnostic RX Recommendation: PCI w/o planned CABG Anticoagulation: Heparin LV EDP: 15 mmHg Left Ventriculography Findings: * Left Ventriculogram not performed to minimize contrast use. Pressures Phase:Rest AO : 137 / 56 ( 101 ) @ 8:57:00 AM 138 / 79 ( 106 ) @ 8:57:00 AM 133 / 76 ( 103 ) @ 9:18:00 AM LV : 161 / 0 / 15 @ 8:57:00 AM 161 / -5 / 23 @ 8:57:00 AM Hemodynamic Findings Mean gradient across bioprosthetic aortic valve of 24 mm Hg. Valves Phase:DefaultPhase AV : 22.0 @ 9:10:36 AM AV Mean Gradient: 24.0 @ 9:10:36 AM Clinical Evaluation EBL: 5mL-10mL Procedural Details Admit Source: In Patient. Procedure Consent Obtained. Pre-Procedure Time Out. Identified patient by full name and date of as verbalized by the patient/guarantor. Does the consent match the physician's order: Yes. Accurate & Complete Informed Consent: Yes. Inpatient/Outpatient History & Physical on Chart: Yes. If H&P is completed, is and addenduem needed: No; If yes, is the addendum complete: No. Visualize and Verify Site with Patient/Guarantor: N/A. Relevant Radiology Images available: N/A. The risks, benefits, and alternatives of sedation and/or procedure were discussed by physician. The patient agrees to continue. Procedure started. Physician notified. Baseline sample Acquired. HR: 66 BPM. Correct patient, site and procedure confirmed by cath team. Current diagnosis: NSTEMI, Abnormal stress test. Practice Nurse Indications: Worsening Angina. [facility] Clinical Fraility Score: 3: Managing Well. PERRLA. Strong, equal hand pharmacy technician per diem bilaterally. Lungs clear x 5 lobes. IV Site on Arrival: 20 gauge in the left anticubital. IV Fluids: 0.9% NaCl at KVO. 300 mL infused prior to aquatic laborer. Pre Procedural Pulses: bilateral radial was 3+. Pre Procedural Pulses: bilateral dorsalis pedis was 3+. Pre Procedural Pulses: bilateral posterior tibial was 2+. Oxygen started at 2liters/min via nasal canula. right radial was prepped with chloroprep then draped in the usual sterile fashion. Physician arrived. Chest Pain Symptom Assessment: Typical Angina Symptoms. Physician scrubbed in. Immediate Pre-Procedure Time Out. Correct Patient: Yes; Correct Procedure: Yes; Correct Site: Yes; Correct Patient Position: Yes; Correct Supplies: Yes; Dried Flammable Prep: Yes; Blood Products Available: No;. Lidocaine 1% infiltrated to the right radial. Arterial access obtained. A 5 malawian TIG catheter in over wire. Wire out. Multiple views taken of left coronary artery. Catheter removed over the standard wire. A 5 malawian JR4 catheter in over wire. Wire out. Multiple views taken of right coronary artery. EDP Sample taken: LV 161/0,15; HR: 69 BPM; SpO2: 95%. Pullback taken: LV 161/-6,23; AO 137/56(101); Mean: 24mmHg, Peak to Peak: 22mmHg, SEP: 22sec/min; HR: 70 BPM; SpO2: 95%. Catheter removed over the standard wire. Dr. Whiting arrived to review cine films. Dr. Whiting scrubbed in to perform intervention. PCI Indication: NSTE. 6 malawian XB 3 guide catheter was inserted over the wire. Guide catheter removed over wire due to vasospam. Hand injection through radial sheath, angiography performed. 6 malawian XB 3.5 guide catheter was inserted over the wire. Guide catheter and wire out due to vasospasm. Lidocaine 1% infiltrated to the right groin. Arterial access obtained with micropuncture set. 6 malawian XB 3.5 guide catheter was inserted over the wire. Guide catheter out. Wire out. 6 malawian XB 3 guide catheter was inserted over the wire. Dr. Alexander scrubbed out. Runthrough wire adavanced through guide catheter. Runthrough wire out. Guide catheter out over standard wire. 6 malawian JL 4 guide catheter was inserted over the wire. Runthrough guidewire was advanced through the guide catheter to lesion in the mid Circ. Guidewire advanced across lesion. Inflation number : 1 A AB TREK 2.25X12 RX BALLOON was prepped and advanced across the Mid CX , then inflated to 8 MARYANNE for 0:08 seconds. Inflation number: 2 The AB TREK 2.25X12 RX BALLOON was reinflated across the Mid CX, to 12 MARYANNE for 0:17 seconds. Patient's family updated. Inflation number: 3 The AB TREK 2.25X12 RX BALLOON was reinflated across the Mid CX, to 14 MARYANNE for 0:31 seconds. Inflation number: 4 The AB TREK 2.25X12 RX BALLOON was reinflated across the Mid CX, to 12 MARYANNE for 0:19 seconds. Balloon out. Angiography performed. Inflation Number : 5 Claudia Arshad KRISTIN 2.25X15 TRAVIS -Lot Number# [id number] was prepped and advanced across the Mid CX. The stent was deployed at 12 MARYANNE for 0:24 seconds. EXP 07-29-2022. Stent balloon out over wire. ACT drawn. Results 248 seconds. Therapeutic limits - pre-heparin administration 90-150 seconds and monitoring heparin during a vascular procedure >250 seconds. Redirected runthrough wire past lesion in proximal OM. Inflation number : 1 A AB TREK 2.25X15 RX BALLOON was prepped and advanced across the proximal 1st Ob Saray , then inflated to 12 MARYANNE for 0:17 seconds. Inflation number: 2 The AB TREK 2.25X15 RX BALLOON was reinflated across the proximal 1st Ob Saray, to 12 MARYANNE for 0:15 seconds. Inflation number: 3 The AB TREK 2.25X15 RX BALLOON was reinflated across the proximal 1st Ob Saray, to 12 MARYANNE for 0:25 seconds. Balloon and wire out. Angiography performed, checking results. Guide catheter out over standard wire. A Right femoral angiogram was performed to determine safe placement of closure device. A TR Band was successful obtaining hemostatsis at the Right Radial artery insertion site. A Angio-Seal VIP (St. Spike) was successful obtaining hemostatsis at the Right Femoral artery insertion site. LOT # [id number], EXP 11-12-22. Post Procedure: Pulses reassessed and unchanged. PERRLA. Strong, equal hand pharmacy technician per diem bilaterally. No VTE prophylaxis required. Medication's Wasted: Nitro = 49.2 mg. Total IV fluids: 129 mL. Medication's Wasted: Heparin = 1000 units. Complications: None. Estimated blood loss: 5mL-10mL. Responsiveness - Normal response to verbal stimuli; alert and oriented, PERRLA. Airway - Unaffected, no intervention required; spontaneous ventilation. Circulation: W/N/L, pulses unchanged. Nausea/Vomiting: N/A. Post-op diagnosis: Severe mid to distal circumflex stenosis, severe proximal OM 1 stenosis. Procedure completed. Patient transferred by bed to 1st floor. Vital chart was stopped. Access Site Site: Right Radial artery Sheath Size: 6 Fr Hemostasis Method: TR Band Hemostasis Success: Successful Site: Right Femoral artery Sheath Size: 6 Fr Hemostasis Method: Angio-Seal VIP (St. Spike) Hemostasis Success: Successful Procedure Medications Start: 7:22 AM Stop: 7:22 AM Medication: Fentanyl Amount: 50 mcg Route: I.V. Start: 7:36 AM Stop: 7:36 AM Medication: Versed Amount: 1 mg Route: I.V. Start: 7:41 AM Stop: 7:41 AM Medication: Versed Amount: 1 mg Route: I.V. Start: 7:42 AM Stop: 7:42 AM Medication: Fentanyl Amount: 50 mcg Route: I.V. Start: 7:43 AM Stop: 7:43 AM Medication: Nitrogylcerin Amount: 200 mcg Route: I.A. Start: 7:45 AM Stop: 7:45 AM Medication: Heparin Amount: 5000 units Route: I.V. Start: 8:02 AM Stop: 8:02 AM Medication: Nitrogylcerin Amount: 200 mcg Route: I.C. Start: 8:04 AM Stop: 8:04 AM Medication: Versed Amount: 1 mg Route: I.V. Start: 8:04 AM Stop: 8:04 AM Medication: Fentanyl Amount: 50 mcg Route: I.V. Start: 8:05 AM Stop: 8:05 AM Medication: Verapamil Amount: 5 mg Route: I.C. Start: 8:17 AM Stop: 8:17 AM Medication: Heparin Amount: 6000 units Route: I.V. Start: 8:33 AM Stop: 8:33 AM Medication: Heparin Amount: 2000 units Route: I.V. Start: 8:33 AM Stop: 8:33 AM Medication: Versed Amount: 1 mg Route: I.V. Start: 8:33 AM Stop: 8:33 AM Medication: Fentanyl Amount: 50 mcg Route: I.V. Start: 8:37 AM Stop: 8:37 AM Medication: Nitrogylcerin Amount: 200 mcg Route: I.C. Start: 8:45 AM Stop: 8:45 AM Medication: Heparin Amount: 2000 units Route: I.V. Start: 8:53 AM Stop: 8:53 AM Medication: Nitrogylcerin Amount: 200 mcg Route: I.C. I, the attending physician, have reviewed and verified all procedure medications. Yes, all medications given per verbal order History/Risk Factors Hypertension: Yes Dyslipidemia: No Peripheral Arterial Disease (PAD): No Myocardial Infarction (MO): No Obesity: No Renal Disease: No Tobacco Use: Current/Recent(w/in 1 year) Prior Interventions PCI: No CABG: No Valve Surgery: No Report Signatures Interventional Workflow Finalized by Cristofer Whiting MD on 04/10/2022 10:01 PM Diagnostic Workflow Finalized by Marissa Alexander MD on 03/30/2022 05:55 PM
--- NOTE | 2022-03-26 07:37 | W.PM.OPSUD ---
Surgery/Procedure H&P Update DATE OF PROCEDURE: March 26, 2022 DATE H&P PERFORMED: 03/25/22 H&P UPDATE INFORMATION: I have reviewed H&P completed within last 30 days, I have examined patient prior to procedure and No changes to prior documentation PREOP DIAGNOSIS: NSTEMI, Abnormal stress test PRIMARY INDICATION FOR PROCEDURE: NSTEMI, Abnormal stress test PLANNED PROCEDURE: Operation Date: 03/26/22 08:00 Proposed Procedures p Cardiac Catheterization(Left) - Marissa Alexander MD PATIENT REASSESSED PRIOR TO SEDATION, WITH NO CHANGE NOTED: Yes PHYSICAL EXAM: alert, oriented x 3, clear to auscultation bilaterally and regular rate & rhythm AIRWAY EVAL/ANESTHESIA PLAN: normal airway, ASA III, Monitored Anesthesia, Local Anesthesia, Risks, benefits & alternatives of sedation and/or procedure discussed and Patient agrees to continue as planned
[2022-03-26] MEDS: escitalopram 10 mg Tablet 20 MG PO (09:35)
[2022-03-26] MEDS: duloxetine 20 mg Capsule PO (09:35)
[2022-03-26] MEDS: LORazepam 1 mg Tablet PO (09:35)
[2022-03-26] MEDS: levothyroxine 100 mcg Tablet 300 MCG PO (09:35)
[2022-03-26] MEDS: aspirin 81 mg Chew Tablet PO (09:36)
[2022-03-26] MEDS: ticagrelor 90 mg Tablet PO ×2 (09:36→18:01)
--- NOTE | 2022-03-26 12:25 | P.PN_ITS ---
Subjective Subjective: He is not having after his procedure. CPAP is on. He wakes up to voice. His is with him at bedside. He denies any complaints, states he is doing well. No chest pain or pressure. No issues in right hand/arm. Vitals/I&O/Wt Last Vital Signs Temp 98.4 F 03/25/22 12:00 Pulse 57 L 03/26/22 11:15 Resp 17 03/26/22 11:15 BP 108/85 03/26/22 11:15 Pulse Ox 96 03/26/22 11:15 03/25/22 03/26/22 03/26/22 22:59 06:59 14:59 Intake Total 286 / 1404 845 / 2249 Output Total 500 / 500 Balance 286 / 1404 845 / 2249 -500 / -500 Weight last 48 hrs Weight 90.718 kg Physical Exam Narrative: Taking a nap, CPAP in place accompanies him in the room. Const: COMMON NORMALS: alert GENERAL APPEARANCE: cooperative ORIENTATION/CONSCIOUSNESS: Yes awake HENMT: COMMON NORMALS: normocephalic, EAC's normal, Normal external nose present and moist oral mucous membranes HEAD & SCALP: normocephalic NOSE: Normal external nose present EXTERNAL AUDITORY CANAL: EAC's normal Neck/C-Spine: COMMON NORMALS: no meningeal signs Chest: CHEST: Yes Symmetrical chest wall rise Resp: COMMON NORMALS: clear to auscultation bilaterally AUSCULTATION: clear to auscultation bilaterally Cardio: COMMON NORMALS: regular rate, regular rhythm and No murmurs present (Cardio) RATE: regular rate RHYTHM: regular rhythm GI: COMMON NORMALS: Normal to inspection, nondistended, normoactive bowel sounds present, Soft to palpation and non-tender PALPATION: Yes Soft to palpation Extremity: COMMON NORMALS: no pedal edema OTHER: Right wrist TR band in place. Neuro: COMMON NORMALS: moves all extremities SENSORIUM/ORIENTATION: Yes alert MENINGEAL SIGNS: Yes no meningeal signs Psych: COMMON NORMALS: mental status grossly normal Skin: COMMON NORMALS: no wounds RASHES: no rashes Data : 03/26/22 04:42 03/26/22 04:42 A&P Assessment and plan (1) NSTEMI (non-ST elevated myocardial infarction): S/p coronary angiogram with PCI, stent placement. Post PCI care. Aspirin, Brilinta, statin, beta-emir held due to bradycardia Arrhythmias so far resolved. Noted arrhythmias w bradycardia, PVC, intermittent BBB, intermittent non-sustained VT runs. Possible contribution from ischemia versus thyroid dysfunction. Remote smoking history, quit 45 years ago. Brother of [place] at age 65. Status: Acute (2) Chest pain: NSTEMI as above. Abnormal D-dimer, but normal corrected for age. Status: Acute (3) Arrhythmia: So far improved. Noted arrhythmias w PVC, intermittent BBB, intermittent non- sustained VT runs. Possible contribution from ischemia versus thyroid dysfunction. Magnesium and potassium okay. Levothyroxine dose adjusted. Status: Acute (4) Bradycardia: Hold metoprolol Status: Acute Plan History of seizure. Seizure precautions History of bioprosthetic aortic valve replacement. Echocardiogram with normal ejection fraction, hypokinesis of basal to mid inferolateral and anterolateral wong. Normal diastolic function. PA pressure 20 mmHg. Bioprosthetic aortic valve functioning well, compared to prior left ventricular systolic function seems to have decreased. Marijuana use. The patient becomes regarding marijuana cessation Obstructive sleep apnea. CPAP/BiPAP: Okay to use home device and/or pressure when sleeping PTSD Anxiety Depression Hypothyroidism. TSH 0.01, free T4 2.55. Discussed with them decreasing levothyroxine dose, decreased to 275 mcg. Reassess outpatient. Hypertension. Now blood pressure soft. Stop Nitropaste. Obesity. The patient becomes regarding lifestyle medication Attestations Medical Necessity Statement*: Continue hospitalization for management following NSTEMI, post PCI care. Coding Level of Care Code Acute Hydroelectric Plant Maintainer for Cathi Tam Diagnoses NSTEMI (non-ST elevated myocardial infarction) I21.4 Chest pain R07.9 Arrhythmia I49.9 Bradycardia R00.1
[2022-03-26] MEDS: temazepam 15 mg Capsule PO (19:43)
[2022-03-26] MEDS: atorvastatin 40 mg Tablet PO (19:44)
[2022-03-26] MEDS: metoprolol tartrate 25 mg Tablet PO (19:44)
[2022-03-27 03:45] VITALS: PULSE 65
[2022-03-27 03:58] VITALS: BP 147/100; PULSE 72; RESP 14; O2SAT 98
[2022-03-27] MEDS: LORazepam 1 mg Tablet PO (04:07)
[2022-03-27 07:07] LABS: Basophils # 0.1 10^3/uL (0.0-0.1); Basophils % 0.9 %; Eosinophils # 0.2 10^3/uL (0.0-0.8); Eosinophils % 3.1 %; Hematocrit 43.1 % (42.0-52.0); Hemoglobin 14.9 g/dL (11.7-16.6); Lymphocytes # 1.8 10^3/uL (0.8-4.8); Lymphocytes % 26.7 %; Mean Corpuscular HGB Conc 34.6 g/dL (30.0-36.0); Mean Corpuscular Hemoglobin 30.7 pg (28.0-34.0); Mean Corpuscular Volume 88.9 fl (80-94); Monocytes # 0.7 10^3/uL (0.2-0.9); Monocytes % 10.4 %; Neutrophils # 3.98 10^3/uL (1.8-7.7); Neutrophils % 58.5 %; Nucleated Red Blood Cells % 0 %; Platelet Count 167 10^3/cmm (130-400); Red Blood Count 4.85 10^6/uL (4.1-5.3); Red Cell Distribution Width 12.1 % (12.1-15.1); White Blood Count 6.8 10^3/uL (4.0-10.0)
[2022-03-27 07:21] VITALS: BP 163/107; PULSE 71; RESP 24; TEMP 37; O2SAT 97
[2022-03-27 07:31] LABS: Alanine Aminotransferase 35 U/L (0-41); Albumin Level 3.9 g/dL (3.5-5.2); Alkaline Phosphatase 73 IU/L (40-130); Anion Gap 14.4 (5-19); Aspartate Amino Transferase 39 U/L (0-40); Blood Urea Nitrogen 13 mg/dL (8-23); Calcium 9.5 mg/dL (8.5-10.5); Carbon Dioxide 26 mmol/L (22-29); Chloride 104 mmol/L (98-107); Creatinine Clr Calc Pharmacy 85.5578; Globulin 2.8 g/dL (1.3-4.6); Glomerular Filtration Rate 84.2 mL/min (90-130); Glucose 93 mg/dL (65-115); Osmolality Calculated 290 mOsm/kg (285-295); Potassium 4.4 mmol/L (3.5-5.1); Sodium 140 mmol/L (136-145); Total Bilirubin 1.2 mg/dL (0.15-1.2); Total Protein 6.7 g/dL (6.6-8.7)
[2022-03-27 07:42] VITALS: BP 138/88
[2022-03-27] MEDS: aspirin 81 mg Chew Tablet PO (08:25)
[2022-03-27] MEDS: duloxetine 20 mg Capsule PO (08:25)
[2022-03-27] MEDS: ticagrelor 90 mg Tablet PO (08:25)
[2022-03-27] MEDS: escitalopram 10 mg Tablet 20 MG PO (08:27)
[2022-03-27] MEDS: metoprolol tartrate 25 mg Tablet PO (08:27)
--- NOTE | 2022-03-27 11:04 | PM.PN ---
Subjective Subjective: No new complaints. He feels well. Runs of AIVR noted on telemetry Medications: Reviewed: Yes Vitals/I&O/Wt Last Vital Signs Temp 98.6 F 03/27/22 07:21 Pulse 71 03/27/22 07:21 Resp 24 H 03/27/22 07:21 BP 138/88 03/27/22 07:42 Pulse Ox 97 03/27/22 07:21 03/26/22 03/27/22 03/27/22 22:59 06:59 14:59 Intake Total 1732.25 / 2092.25 600 / 600 Output Total 425 / 1275 Balance 1307.25 / 817.25 600 / 600 Physical Exam Narrative: Gen: NAD Neck: No JVD, No carotid bruit HEENT: No pallor or icterus RS: CTAB/L CVS: S1, S2 normal. NO murmur, rub or gallop CIVIL CADD TECHNICIAN: AAOx 3, No FND Ext: No edema, cyanosis or clubbing. Right radial and femoral access site looks good. No bruising or hematoma noted. Psych: normal mood and affect Skin: No rash/ wound Data : 03/27/22 06:44 03/27/22 06:44 A&P Assessment and plan (1) NSTEMI (non-ST elevated myocardial infarction): -s/p drug-eluting stent placement to circumflex and balloon angioplasty of obtuse marginal -ASA, statin, brilinta -Discharged on metoprolol 50 mg in the morning and 25 mg evening. -We will add low-dose Imdur to her regimen as well. -Follow-up in 1 week with Molly. Follow-up with me in 2 months. Status: Acute (2) History of aortic valve replacement with bioprosthetic valve: Status: Acute (3) ANGELINA (obstructive sleep apnea): Status: Acute Plan ANGELINA H/O seizure Anxiety Hypothyroidism PTSD Thank you for allowing me to participate in patient's care. Please feel free to call with questions or concerns. Attestations Medical Necessity Statement*: Stable to be discharged home. Coding Level of Care Code Acute Emergency Veterinary Technician for Christopherg Fwd Diagnoses NSTEMI (non-ST elevated myocardial infarction) I21.4 History of aortic valve replacement with bioprosthetic valve Z95.3 ANGELINA (obstructive sleep apnea) G47.33
[2022-03-27 11:17] VITALS: BP 127/85; PULSE 63; RESP 24; TEMP 36.6; O2SAT 95
--- NOTE | 2022-03-27 12:03 | P.DS_ITS ---
Discharge Providers Date of Admission: 03/26/22 13:10 Date of Discharge: March 27, 2022 Attending Provider at Admission: Elodia Iraheta DO Attending Provider at Discharge: Elodia Iraheta DO Primary Care Provider: Johnny Mendoza DO Diagnoses at Discharge Discharge Diagnosis (1) NSTEMI (non-ST elevated myocardial infarction): Status: Acute (2) History of aortic valve replacement with bioprosthetic valve: Status: Acute (3) ANGELINA (obstructive sleep apnea): Status: Acute Reason for Visit Reason for Visit: Chest Pain Hospital Course Hospital Course Pleasant 66-year-old gentleman with HTN, obesity, ANGELINA on CPAP with, PTSD, hypothyroidism, seizures, history of bioprosthetic AV replacement 2 years ago at [facility] in [place], was admitted for assessment of management due to ch est pain found to have NSTEMI, with R WMA on TTE, bioprosthetic valve. Well- seated and normally functioning. With noted very frequent PVCs and short runs of nonsustained VT. Underwent assessment by coronary angiography with PCI and drug-eluting stent deployed to circumflex, balloon angioplasty of obtuse marginal. Arrhythmias resolved. Still some persistent sinus bradycardia in the 50s, so metoprolol is not continued. Continues on Brilinta, aspirin, statin. Follow-up with cardiology. Incidentally also noted TSH low at 0.01, free T4 high at 2.55. Levothyroxine dose adjusted to 275 mcg. Please follow-up thyroid function in 3-4 weeks time. Physical Exam Narrative: Taking a nap, CPAP in place accompanies him in the room. Const: COMMON NORMALS: alert GENERAL APPEARANCE: cooperative OR IENTATION/CONSCIOUSNESS: Yes awake HENMT: COMMON NORMALS: normocephalic, EAC's normal, Normal external nose present and moist oral mucous membranes HEAD & SCALP: normocephalic NOSE: Normal external nose present EXTERNAL AUDITORY CANAL: EAC's normal Neck/C-Spine: COMMON NORMALS: no meningeal signs Chest: CHEST: Yes Symmetrical chest wall rise OTHER: No chest wall tenderness on palpation Resp: COMMON NORMALS: clear to auscultation bilaterally AUSCULTATION: clear to auscultation bilaterally Cardio: COMMON NORMALS: regular rate, regular rhythm and No murmurs present (Cardio) RATE: regular rate RHYTHM: regular rhythm GI: COMMON NORMALS: Normal to inspection, nondistended, normoactive bowel sounds present, Soft to palpation and non-tender PALPATION: Yes Soft to palpation Extremity: COMMON NORMALS: no pedal edema OTHER: Right wrist no pulsatile mass, ecchymosis, no bleeding. Discussed with him and his to seek medical attention immediately in case of concerning symptoms. Neuro: COMMON NORMALS: moves all extremities SENSORIUM/ORIENTATION: Yes alert MENINGEAL SIGNS: Yes no meningeal signs Psych: COMMON NORMALS: mental status grossly normal Skin: COMMON NORMALS: no wounds RASHES: no rashes Discharge Data Studies Completed and Pending Completed Studies During Hospitalization Category Date Time Status XR chest 1V portable [id number] Stat Exams 03/24/22 21:27 Completed NM smita perf SPECT r/s* [id number] Routine Nuc Med 03/25/22 23:32 Completed CV. echo complete* [id number] Routine Ultrasound 03/25/22 23:32 Completed Pending at discharge Category Date Time Status CREATIVE SERVICES INTERN request for service Routine Exams 03/26/22 06:39 Taken Cardiac Stress Test MIBI [Sestamibi Stress Test Request Exams 03/25/22 06:48 Ordered ] Routine Complete Blood Count w/Auto AM LABS Lab 03/28/22 04:00 Ordered Comprehensive Metabolic Panel AM LABS Lab 03/28/22 04:00 Ordered Radiology Impressions Chest X-Ray 03/24/22 21:27 IMPRESSION: No acute abnormality demonstrated. Laboratory Results WBC 6.8 10^3/uL (4.0-10.0) 03/27/22 06:44 RBC 4.85 10^6/uL (4.1-5.3) 03/27/22 06:44 Hgb 14.9 g/dL (11.7-16.6) 03/27/22 06:44 Hct 43.1 % (42.0-52.0) 03/27/22 06:44 MCV 88.9 fl (80-94) 03/27/22 06:44 MCH 30.7 pg (28.0-34.0) 03/27/22 06:44 MCHC 34.6 g/dL (30.0-36.0) 03/27/22 06:44 RDW 12.1 % (12.1-15.1) 03/27/22 06:44 Plt Count 167 10^3/cmm (130-400) 03/27/22 06:44 MPV 9.0 fL (7.4-10.4) 03/27/22 06:44 Neut % (Auto) 58.5 % 03/27/22 06:44 Lymph % (Auto) 26.7 % 03/27/22 06:44 [place] % (Auto) 10.4 % 03/27/22 06:44 Eos % (Auto) 3.1 % 03/27/22 06:44 Baso % (Auto) 0.9 % 03/27/22 06:44 Neut # (Auto) 3.98 10^3/uL (1.8-7.7) 03/27/22 06:44 Lymph # (Auto) 1.8 10^3/uL (0.8-4.8) 03/27/22 06:44 [place] # (Auto) 0.7 10^3/uL (0.2-0.9) 03/27/22 06:44 Eos # (Auto) 0.2 10^3/uL (0.0-0.8) 03/27/22 06:44 Baso # (Auto) 0.1 10^3/uL (0.0-0.1) 03/27/22 06:44 Nucleated RBC % (auto) 0 % 03/27/22 06:44 Nucleated RBCs # 0.0 /100WBC 03/27/22 06:44 D-Dimer 0.63 ug/mIFEU (0-0.59) H 03/24/22 22:00 Sodium 140 mmol/L (136-145) 03/27/22 06:44 Potassium 4.4 mmol/L (3.5-5.1) 03/27/22 06:44 Chloride 104 mmol/L (98-107) 03/27/22 06:44 Carbon Dioxide 26 mmol/L (22-29) 03/27/22 06:44 Anion Gap 14.4 (5-19) 03/27/22 06:44 BUN 13 mg/dL (8-23) 03/27/22 06:44 Creatinine 0.9 mg/dL (0.7-1.2) 03/27/22 06:44 GFR Calculation 84.2 mL/min (90-130) L 03/27/22 06:44 Glucose 93 mg/dL (65-115) 03/27/22 06:44 Calculated Osmolality 290 mOsm/kg (285-295) 03/27/22 06:44 Calcium 9.5 mg/dL (8.5-10.5) 03/27/22 06:44 Magnesium 2.0 mg/dL (1.7-2.3) 03/25/22 01:07 Total Bilirubin 1.2 mg/dL (0.15-1.2) 03/27/22 06:44 AST 39 U/L (0-40) 03/27/22 06:44 ALT 35 U/L (0-41) 03/27/22 06:44 Alkaline Phosphatase 73 IU/L (40-130) 03/27/22 06:44 Troponin T Baseline 25 ng/L (0-15) H 03/24/22 22:00 Troponin T 120 Minute 68.11 ng/L (0-15) H 03/25/22 01:07 Delta Troponin T 43.11 ABS# (0-10) H* 03/25/22 01:07 Troponin T Hi Sens 6Hr 152.8 ng/L (0-15) H 03/25/22 04:26 Troponin T Hi Sens 6Hr Delta 127.8 ng/L (0-12) H* 03/25/22 04:26 Total Protein 6.7 g/dL (6.6-8.7) 03/27/22 06:44 Albumin 3.9 g/dL (3.5-5.2) 03/27/22 06:44 Globulin 2.8 g/dL (1.3-4.6) 03/27/22 06:44 Triglycerides 115 mg/dL (0-150) 03/25/22 04:26 Cholesterol 159 mg/dL (0-200) 03/25/22 04:26 LDL Cholesterol, Calc 100 mg/dL (50-129) 03/25/22 04:26 HDL Cholesterol 36 mg/dL (60-100) L 03/25/22 04:26 LDL/HDL Ratio 2.78 RATIO (0.00-3.22) 03/25/22 04:26 Cholesterol/HDL Ratio 4.42 mg/dL (1.0-5.00) 03/25/22 04:26 TSH 0.01 uIU/mL (0.27-4.20) L 03/25/22 01:07 Free T4 2.55 ng/dL (0.82-1.77) H 03/25/22 01:07 Free T3 4.1 PG/ML (2.0-4.4) 03/25/22 01:07 Vitals Last Vital Signs Temp 97.8 F 03/27/22 11:17 Pulse 63 03/27/22 11:17 Resp 24 H 03/27/22 11:17 BP 127/85 03/27/22 11:17 Pulse Ox 95 03/27/22 11:17 Discharge Plan Discharge Patient Disposition: Home Condition: Stable Prescriptions: New atorvastatin 40 mg Tablet 40 mg PO BEDTIME Qty: 30 2RF nitroglycerin 0.4 mg Tablet, Sublingual 0.4 mg sublingual Q5M PRN (Reason: Chest Pain) Qty: 25 6RF Children's Aspirin 81 mg Tablet,Chewable 81 mg PO DAILY Qty: 90 2RF Brilinta 90 mg Tablet 90 mg PO BID Qty: 60 3RF metoprolol tartrate 50 mg tablet See Rx Instructions .ROUTE .COMPLEX Qty: 45 3RF Rx Instructions: 50 mg orally. Take 1 in morning and 1/2 tab in evening levothyroxine 200 mcg capsule 200 mcg PO DAILY Qty: 90 0RF levothyroxine 75 mcg capsule 75 mcg PO DAILY Qty: 90 0RF Continued levothyroxine [Synthroid] 300 mcg tablet 300 mcg PO DAILY 0RF duloxetine [Cymbalta] 20 mg capsule,delayed release(DR/EC) 20 mg PO DAILY 0RF temazepam 15 mg PO BEDTIME 0RF Lexapro 20 mg PO DAILY 0RF dicyclomine 20 mg PO TID 0RF lorazepam 1 mg PO TID PRN (Reason: Anxiety) 0RF Discontinued metoprolol tartrate 25 mg tablet 50 mg PO BID 0RF Discharge Orders: Discharge Order (Routine); Ordered 03/27/22 Ordered By: Naldo Tineo Referrals: Johnny Mendoza DO [Primary Care Provider] - 4-7 days Molly Pool FNP [Nurse Practitioner] - 7-10 days Marissa Alexander MD [Physician] - 2 months Discharge Diet: Cardiac Discharge Activity: Increase activity as tolerated and Cpap/Bipap as instructed Patient Instructions: Ticagrelor (By mouth), Coronary Artery Disease (GEN), Coronary Intravascular Stent Placement (GEN) Activity Restrictions/Additional Instructions: * Call if BP running > 140/90 mm Hg * Do not lift anything more than 5 lbs for 1 week. Keep the site dry and clean * Take medications as prescribed and follow up as scheduled. Please have your primary doctor follow-up your thyroid function in 3-4 weeks. Your levothyroxine dose was adjusted down to 275 mcg/day. Discharge Attestations Time Spent in Discharge Care*: greater than 30 min Quality Metrics Clinical Quality Measures [ Acute Myocardial Infaction { Clinical Trial Participant: No; Contraindication to aspirin: None; Aspirin prescribed; Contraindication to statin: None; Statin prescribed; Contraindication to PCI: None; PCI performed;}] Coding Level of Care Code Acute [facility] note Diagnoses NSTEMI (non-ST elevated myocardial infarction) I21.4 History of aortic valve replacement with bioprosthetic valve Z95.3 ANGELINA (obstructive sleep apnea) G47.33
[2022-03-27 12:37] VITALS: BP 127/85; PULSE 63; RESP 24; TEMP 36.6; O2SAT 95
== END 2022-03-27 13:30 | disposition home or self-care (01) | DRG 247 ==
LOC: ER 22:53 → CSU 23:14
PROVIDERS: Internal Medicine; Internal Medicine Cardiovascular Disease; Admitting Provider Internal Medicine; Emergency Provider Emergency Medicine; PCP Emergency Medicine Emergency Medical Services; Visit Provider Internal Medicine
PROC: 027034Z Dilation of Coronary Artery, One Artery with Drug-eluting Intraluminal Device, Percutaneous Approach (ICD-10-PCS; 2022-03-26 08:00)
DX: I21.4 Non-ST elevation (NSTEMI) myocardial infarction (principal); I25.10 Atherosclerotic heart disease of native coronary artery without angina pectoris; Z95.3 Presence of xenogenic heart valve; F12.90 Cannabis use, unspecified, uncomplicated; G47.33 Obstructive sleep apnea (adult) (pediatric); F43.10 Post-traumatic stress disorder, unspecified; F41.8 Other specified anxiety disorders; E03.9 Hypothyroidism, unspecified; I10 Essential (primary) hypertension; E66.9 Obesity, unspecified; Z68.31 Body mass index [BMI] 31.0-31.9, adult; Z99.89 Dependence on other enabling machines and devices; Z87.891 Personal history of nicotine dependence; R00.1 Bradycardia, unspecified; Z82.49 Family history of ischemic heart disease and other diseases of the circulatory system
CPT/HCPCS: 36415; 71045; 78452; 80053; 80061; 83735; 84439; 84443; 84481; 84484; 85025; 85347; 85378; 93005; 93017; 93306; 93452; 93458; 96360; 96372; 96374; 99152; 99153; 99285; A9500; C1725; C1760; C1769; C1874; C1887; C1894; C9600; G0378; J0280; J1644; J1650; J2060; J2250; J2405; J2785; J3010; J3490; J7030; Q9967

== ENCOUNTER → 2022-04-28 13:35 | Outpatient (BNVA) | payer OTHER, SELFPAY | PROVIDERS: PCP Emergency Medicine Emergency Medical Services; Visit Provider Nurse Practitioner Family | DX: I25.10 Atherosclerotic heart disease of native coronary artery without angina pectoris (principal); I25.2 Old myocardial infarction; Z98.61 Coronary angioplasty status; R06.02 Shortness of breath; Z87.891 Personal history of nicotine dependence | CPT/HCPCS: 99213; 99214 ==

== ENCOUNTER → 2022-06-14 15:30 | Outpatient (BNVA) | payer OTHER, SELFPAY | PROVIDERS: PCP Emergency Medicine Emergency Medical Services; Visit Provider Internal Medicine Cardiovascular Disease | DX: I25.10 Atherosclerotic heart disease of native coronary artery without angina pectoris (principal); Z95.3 Presence of xenogenic heart valve | CPT/HCPCS: 99213; 99214 ==

== ENCOUNTER 2025-03-12 12:33 | Outpatient (CLI) | payer OTHER, SELFPAY ==
--- NOTE | 2025-03-12 12:38 | US_ITS ---
WS: [id number] THYROID ULTRASOUND HISTORY: RAPID RISE IN TSH W/HYPERACTIVITY COMPARISON: None available. Right lobe: 1.2 cm x 1.2 cm x 3.3 cm (w x ap x l). Volume: 2.3 cm3. Small caliber thyroid difficult to visualize. No mass. Left lobe: 1.0 cm x 0.9 cm x 3.2 cm (w x ap x l). Volume: 1.4 cm3. Very small caliber thyroid is difficult to visualize. No mass. Isthmus: 0.5 cm. US/US thyroid [id number] IMPRESSION: Atrophied thyroid. No mass identified.
== END 2025-03-12 12:34 | disposition home or self-care (01) ==
PROVIDERS: PCP Nurse Practitioner; Visit Provider Nurse Practitioner
DX: Z01.89 Encounter for other specified special examinations (principal); E03.4 Atrophy of thyroid (acquired)
CPT/HCPCS: 76536

== ENCOUNTER 2025-08-04 07:18 | Outpatient (CLI) | payer OTHER, SELFPAY ==
--- NOTE | 2025-08-04 07:23 | US_ITS ---
WS: [id number] RIGHT UPPER QUADRANT ULTRASOUND HISTORY: ELEVATED LIVER ENZYMES COMPARISON: None available. Liver: 19.9 cm in length. Moderate hepatomegaly and hepatic steatosis. No mass or bile duct dilatation. The entire liver is not well visualized due to attenuation and hepatic steatosis. Focal fatty sparing adjacent to the gallbladder. Portal Vein: Normal hepatopetal flow with monophasic waveform. Gallbladder: Normally distended gallbladder with no stones or wall thickening. CBD: 0.4 cm Pancreas: Completely obscured by bowel gas. Right kidney: 12.5 cm in length. Normal size and echogenicity. No hydronephrosis or mass. Aorta and IVC: Unremarkable abdominal aorta and IVC. No ascites. US/US abdomen limited [id number] IMPRESSION: 1. Negative gallbladder. 2. Moderately enlarged liver with hepatic steatosis. Focal fatty sparing adjac ent to the gallbladder. 3. No hepatobiliary duct obstruction.
== END 2025-08-04 07:19 | disposition home or self-care (01) ==
LOC: RAD 07:19
PROVIDERS: PCP Nurse Practitioner; Visit Provider Nurse Practitioner
DX: Z01.89 Encounter for other specified special examinations (principal); R74.01 Elevation of levels of liver transaminase levels; R16.0 Hepatomegaly, not elsewhere classified; K76.0 Fatty (change of) liver, not elsewhere classified
CPT/HCPCS: 76705

== ENCOUNTER 2025-09-04 09:09 | Outpatient (CLI) | payer OTHER, SELFPAY ==
--- NOTE | 2025-09-04 09:14 | MR_ITS ---
WS: [id number] MRI BRAIN WITH AND WITHOUT CONTRAST HISTORY: NEUROPATHY IN UPPER LOWER EXTREMITIES COMPARISON: 12/31/2018 TECHNIQUE: Multiplanar imaging performed through the brain with MultiHance 10 ml's IV. No acute infarcts are seen. Wood-white matter differentiation is well preserved. Scattered T2 and FLAIR signal hyperintensities throughout the white matter. Mild progression since 2019. No signal abnormality in the mahendra or cerebellum. No hemorrhage. Moderate cerebral and cerebellar atrophy. Small lacunar infarct in the RIGHT cerebellum. Ventricles and extra-axial spaces are normal. Mild bilateral hippocampal atrophy. Focal nodular enhancement in the RIGHT frontal lobe similar to the prior study from 2019 consistent with a venous angioma. No additional areas of abnormal enhancement. Reidentified is a peripherally enhancing 4 mm pineal gland cyst. Dural venous sinuses are normal. Paranasal sinuses: Tiny amount of fluid in the LEFT maxillary sinus. Mastoid air cells: Normal. Calvarium and scalp: Normal. MR/MR head wo/w con [id number] IMPRESSION: 1. No acute infarcts. No hemorrhage. 2. Moderate atrophy and small vessel changes. Mild progression of the small ve ssel changes since 2019. 3. No enhancing masses. 4. Stable RIGHT frontal lobe venous angioma. 5. Stable 4 mm pineal gland cyst. 6. Mild bilateral hippocampal atrophy.
== END 2025-09-04 09:10 | disposition home or self-care (01) ==
LOC: RAD 09:09
PROVIDERS: PCP Nurse Practitioner; Visit Provider Nurse Practitioner
DX: G62.89 Other specified polyneuropathies (principal); G31.89 Other specified degenerative diseases of nervous system; E34.8 Other specified endocrine disorders; I63.81 Other cerebral infarction due to occlusion or stenosis of small artery; R93.0 Abnormal findings on diagnostic imaging of skull and head, not elsewhere classified
CPT/HCPCS: 70553